=== PATIENT | male | born 1990 | race Hispanic/Latino ===

== ENCOUNTER 2018-08-25 05:33 | Inpatient (IN) | payer BC, SELFPAY ==
[2018-08-25 06:04] LABS: Absolute Lymphocytes (CBC) 1.4 K/uL (0.7-4.9); Absolute Monocytes 0.7 K/uL (0.1-1.3); Absolute Neutrophil 9.3 K/uL (1.8-8.0); Basophils % 0.2 % (0-1.3); Eosinophils % 1.2 % (0-4.4); Hematocrit 43.4 % (39.6-49.0); Lymphocytes % 12.3 % (15.3-44.8); MPV 7.8 fL (7.6-11.3); Monocytes % 6.1 % (3.3-12.3); RBC Red Blood Cell Count 4.68 M/uL (4.33-5.43)
[2018-08-25] MEDS ORDERED: NA CHLORIDE 0.9% 1,000 ML ONE (06:10)
[2018-08-25] MEDS ORDERED: ONDANSETRON 4 MG/2 ML VIAL ONE ×2 (06:10→09:51)
[2018-08-25] MEDS ORDERED: MORPHINE 4 MG/ML SYR ONE ×2 (06:10→08:30)
[2018-08-25 06:20] LABS: ALT/SGPT 43 U/L (12-78); AST/SGOT 26 U/L (15-37); Alkaline Phosphatase 58 U/L (45-117); BUN Blood Urea Nitrogen 13 mg/dL (7-18); Bicarbonate 26 mmol/L (21-32); Bilirubin Direct 0.2 mg/dL (0-0.2); Bilirubin Total 0.6 mg/dL (0.2-1.0); Glucose Level 109 mg/dL (74-106); Lipase 63 U/L (73-393); Potassium 3.6 mmol/L (3.5-5.1); Protein, Total 7.3 g/dL (6.4-8.2); Sodium Level 143 mmol/L (136-145)
--- NOTE | 2018-08-25 06:49 | EDPHYS ---
Physician Documentation [facility] Name: Walter Galvan Age: 28 yrs Sex: Male : 1990 Arrival Date: 08/25/2018 Time: 05:38 Bed 7 Private MD: Kyle Aranda H ED Physician Shaun Conte HPI: 08/25 06:14 This 28 yrs old Male presents to ER via Ambulatory with complaints of gs Abdominal Pain. 06:14 The patient presents with abdominal pain in the lower abdomen. Onset: The gs symptoms/episode began/occurred gradually, yesterday. Associated signs and symptoms: Pertinent positives: nausea and vomiting. Associated signs and symptoms: Pertinent negatives: diarrhea. The symptoms are described as crampy, sharp. Modifying factors: The symptoms are alleviated by nothing, the symptoms are aggravated by nothing. Severity of pain: At its worst the pain was moderate in the emergency department the pain is unchanged. The patient has not experienced similar symptoms in the past. Historical: - Allergies: 05:48 No Known Allergies; bb - Home Meds: 05:48 None [Active]; bb - PMHx: 05:48 None; bb - PSHx: 05:48 dental; bb - Immunization history:: Adult Immunizations unknown, Flu vaccine is not up to date. - Social history:: Smoking status: Patient uses tobacco products, smokes one-half pack cigarettes per day, Patient uses alcohol, but reports only rare drinking. Patient/guardian denies using street drugs. - Ebola Screening: : No symptoms or risks identified at this time. ROS: 06:14 All other systems are negative. gs Exam: 06:14 Head/Face: Normocephalic, atraumatic. Eyes: Pupils equal round and reactive to light, gs extra-ocular motions intact. Lids and lashes normal. Conjunctiva and sclera are non-icteric and not injected. Cornea within normal limits. Periorbital areas with no swelling, redness, or edema. ENT: Nares patent. No nasal discharge, no septal abnormalities noted. Tympanic membranes are normal and external auditory canals are clear. Oropharynx with no redness, swelling, or masses, exudates, or evidence of obstruction, uvula midline. Mucous membranes moist. Neck: Trachea midline, no thyromegaly or masses palpated, and no cervical lymphadenopathy. Supple, full range of motion without nuchal rigidity, or vertebral point tenderness. No Meningismus. Chest/axilla: Normal chest wall appearance and motion. Nontender with no deformity. No lesions are appreciated. Cardiovascular: Regular rate and rhythm with a normal S1 and S2. No gallops, murmurs, or rubs. Normal PMI, no JVD. No pulse deficits. Respiratory: Lungs have equal breath sounds bilaterally, clear to auscultation and percussion. No rales, rhonchi or wheezes noted. No increased work of breathing, no retractions or nasal flaring. Back: No spinal tenderness. No costovertebral tenderness. Full range of motion. Skin: Warm, dry with normal turgor. Normal color with no rashes, no lesions, and no evidence of cellulitis. MS/ Extremity: Pulses equal, no cyanosis. Neurovascular intact. Full, normal range of motion. Neuro: Awake and alert, GCS 15, oriented to person, place, time, and situation. Cranial nerves II-XII grossly intact. Motor strength 5/5 in all extremities. Sensory grossly intact. Cerebellar exam normal. Normal gait. 06:14 Constitutional: The patient appears alert, awake. 06:14 Abdomen/GI: Palpation: moderate abdominal tenderness, in the left lower quadrant, severe abdominal tenderness, in the right lower quadrant, rebound tenderness, is appreciated in the right lower quadrant, Indicators: Rovsing's sign is positive. Vital Signs: 05:48 BP 131 / 80; Pulse 80; Resp 18 S; Temp 97.8(O); Pulse Ox 98% on R/A; Weight 99.79 kg bb (R); Height 5 ft. 7 in. (170.18 cm) (R); Pain 8/10; 06:50 BP 130 / 88; Pulse 76; Resp 17; Temp 97.8(O); Pulse Ox 97% on R/A; Pain 6/10; ed1 06:51 Pain 6/10; ed1 07:28 BP 122 / 75; Pulse 66; Resp 18; Temp 97.7; Pulse Ox 97% on R/A; ph 08:29 BP 113 / 88; Pulse 71; Resp 18; Temp 97.8; Pulse Ox 98% on R/A; ph 05:48 Body Mass Index 34.46 (99.79 kg, 170.18 cm) bb MDM: 05:46 Patient medically screened. 06:14 Differential diagnosis: appendicitis, bowel obstruction, diverticulitis, pancreatitis. Data reviewed: vital signs, nurses notes. Response to treatment: the patient's symptoms have mildly improved after treatment. 08/25 05:48 Order name: Basic Metabolic Panel; Complete Time: 06:23 08/25 05:48 Order name: CBC with Diff; Complete Time: 06:13 08/25 05:48 Order name: Hepatic Function; Complete Time: 06:23 08/25 05:48 Order name: Lipase; Complete Time: 06:23 08/25 05:48 Order name: CT Abd/Pelvis - W/Contrast; Complete Time: 08:21 08/25 05:48 Order name: IV Saline Lock; Complete Time: 06:05 08/25 05:48 Order name: Labs collected and sent; Complete Time: 06:05 08/25 06:59 Order name: NPO EDMS Administered Medications: 06:05 Drug: NS 0.9% 1000 ml Route: IV; Rate: 1 bolus; Site: right forearm; ed1 07:27 Follow up: Response: No adverse reaction; IV Status: Completed infusion ph 06:05 Drug: morphine 4 mg Route: IVP; Site: right forearm; ed1 06:51 Follow up: Pain 6/10 Adult; Response: No adverse reaction; Pain is decreased ed1 06:05 Drug: Zofran 4 mg Route: IVP; Site: right forearm; ed1 06:52 Follow up: Response: No adverse reaction; Nausea is decreased ed1 06:56 Drug: cefOXitin 1 grams Route: IVPB; Infused Over: 30 mins; Site: right forearm; ed1 07:28 Follow up: Response: No adverse reaction; IV Status: Completed infusion ph 07:18 Drug: morphine 4 mg Route: IVP; Site: right antecubital; ph 07:28 Follow up: Response: No adverse reaction; Pain is decreased ph 08:18 Drug: morphine 4 mg Route: IVP; Site: right antecubital; ph 08:47 Follow up: Response: No adverse reaction; Pain is decreased ph Disposition: 08/25/18 06:49 Hospitalization ordered by Chinmay Rhoades for Inpatient Admission. Preliminary diagnosis are Acute appendicitis, Acute appendicitis with localized peritonitis. - Bed requested for Telemetry/MedSurg (Inpatient). - Status is Inpatient Admission. ph - Condition is Stable. - Problem is new. - Symptoms have improved. UTI on Admission? No Signatures: Dispatcher [employer] EDCaitie Patel RN RN Elder Siddiqi MD MD rn Riggs, Erika, RN RN ed1 Britni Baez RN RN Conte, MD ARABELLA Dunn gs Corrections: (The following items were deleted from the chart) 08:47 06:49 Hospitalization Ordered by Chinmay Rhoades MD for Inpatient Admission. Preliminary ph diagnosis is Acute appendicitis; Acute appendicitis with localized peritonitis. Bed requested for Telemetry/MedSurg (Inpatient). Status is Inpatient Admission. Condition is Stable. Problem is new. Symptoms have improved. UTI on Admission? No. gs
--- NOTE | 2018-08-25 06:49 | ER ---
Nurse's Notes [facility] Name: Walter Galvan Age: 28 yrs Sex: Male : 1990 Arrival Date: 08/25/2018 Time: 05:38 Bed 7 Private MD: Kyle Aranda H Diagnosis: Acute appendicitis;Acute appendicitis with localized peritonitis Presentation: 08/25 05:46 Presenting complaint: Patient states: he is having severe abdominal pain since approx bb 2200 last night thought he might be constipated but pain is getting worse, pt is having dry heaves, pain is constant with no relief. Transition of care: patient was not received from another setting of care. Onset of symptoms was August 24, 2018. Risk Assessment: Do you want to hurt yourself or someone else? Patient reports no desire to harm self or others. Initial Sepsis Screen: Does the patient meet any 2 criteria? No. Patient's initial sepsis screen is negative. Does the patient have a suspected source of infection? No. Patient's initial sepsis screen is negative. Care prior to arrival: None. 05:46 Method Of Arrival: Ambulatory bb 05:46 Acuity: SULEIMAN 3 bb Historical: - Allergies: 05:48 No Known Allergies; bb - Home Meds: 05:48 None [Active]; bb - PMHx: 05:48 None; bb - PSHx: 05:48 dental; bb - Immunization history:: Adult Immunizations unknown, Flu vaccine is not up to date. - Social history:: Smoking status: Patient uses tobacco products, smokes one-half pack cigarettes per day, Patient uses alcohol, but reports only rare drinking. Patient/guardian denies using street drugs. - Ebola Screening: : No symptoms or risks identified at this time. Screenin:49 Abuse screen: Denies threats or abuse. Denies injuries from another. Nutritional ed1 screening: No deficits noted. Tuberculosis screening: No symptoms or risk factors identified. Fall Risk None identified. Assessment: 05:49 General: Appears uncomfortable, Behavior is calm, cooperative. Pain: Complains of pain ed1 in abdomen Pain does not radiate. Pain currently is 8 out of 10 on a pain scale. Quality of pain is described as sharp, Pain began gradually, last night around 2200 Is continuous. Neuro: Level of Consciousness is awake, alert, obeys commands, Oriented to person, place, time, situation. Cardiovascular: Denies chest pain, Heart tones S1 S2 present. Respiratory: Airway is patent Respiratory effort is even, unlabored, Respiratory pattern is regular, symmetrical, Breath sounds are clear bilaterally. Denies cough, shortness of breath. GI: Abdomen is non-distended, Bowel sounds present X 4 quads. Abd is soft X 4 quads Abdomen is tender to palpation in right lower quadrant and left lower quadrant Reports nausea, vomiting, Patient currently denies diarrhea. : No signs and/or symptoms were reported regarding the genitourinary system. EENT: Oral mucosa is moist. Derm: Skin is intact, is healthy with good turgor, Skin is dry, Skin is normal, Skin temperature is warm. Musculoskeletal: Circulation, motion, and sensation intact. Range of motion: intact in all extremities. 06:50 Reassessment: Patient appears in no apparent distress at this time. Patient and/or ed1 family updated on plan of care and expected duration. Pain level reassessed. Patient is alert, oriented x 3, equal unlabored respirations, skin warm/dry/pink. Patient states feeling better. Patient states symptoms have improved. GI: Patient currently denies nausea. 07:15 Reassessment: Patient appears in no apparent distress at this time. Patient and/or ph family updated on plan of care and expected duration. Pain level reassessed. Patient is alert, oriented x 3, equal unlabored respirations, skin warm/dry/pink. Pt resting quietly, reports that pain has increased to 9/10 and denies nausea at this time, ERP notified of pain, see MAR. 07:30 Reassessment: Patient appears in no apparent distress at this time. Patient is alert, ph oriented x 3, equal unlabored respirations, skin warm/dry/pink. Pt reports that pain has decreased to 6/10, SO at bedside, awaiting consult w/ surgeon. 08:35 Reassessment: Patient appears in no apparent distress at this time. Patient and/or ph family updated on plan of care and expected duration. Pain level reassessed. Patient is alert, oriented x 3, equal unlabored respirations, skin warm/dry/pink. Pt c/o pain, ERP notified, see MAR. 08:46 Reassessment: Patient appears in no apparent distress at this time. Patient is alert, ph oriented x 3, equal unlabored respirations, skin warm/dry/pink. Surgical nurse at bedside, pt taken to OR via stretcher, accompanied by SO. Vital Signs: 05:48 BP 131 / 80; Pulse 80; Resp 18 S; Temp 97.8(O); Pulse Ox 98% on R/A; Weight 99.79 kg bb (R); Height 5 ft. 7 in. (170.18 cm) (R); Pain 8/10; 06:50 BP 130 / 88; Pulse 76; Resp 17; Temp 97.8(O); Pulse Ox 97% on R/A; Pain 6/10; ed1 06:51 Pain 6/10; ed1 07:28 BP 122 / 75; Pulse 66; Resp 18; Temp 97.7; Pulse Ox 97% on R/A; ph 08:29 BP 113 / 88; Pulse 71; Resp 18; Temp 97.8; Pulse Ox 98% on R/A; ph 05:48 Body Mass Index 34.46 (99.79 kg, 170.18 cm) bb ED Course: 05:38 Patient arrived in ED. es 05:38 Kyle Aranda DO is Private Physician. es 05:39 Shaun Conte MD is Attending Physician. gs 05:48 Triage completed. bb 05:48 Arm band placed on Patient placed in an exam room, on a stretcher, on pulse oximetry. bb Family accompanied patient. 05:49 Patient has correct armband on for positive identification. Placed in gown. Bed in low ed1 position. Call light in reach. Side rails up X 1. Adult w/ patient. Pulse ox on. NIBP on. Warm blanket given. 05:57 Jessica Galarza, RN is Primary Nurse. ed1 05:57 Initial lab(s) drawn, by me, sent to lab. Inserted saline lock: 20 gauge in right ed1 forearm, using aseptic technique. Blood collected. 06:[address] via wheelchair. kw1 06:42 CT Abd/Pelvis - W/Contrast In Process Unspecified. EDMS 06:44 CT completed. Patient tolerated procedure well. Patient moved back from CT. kw1 06:48 Chinmay Rhoades MD is Hospitalizing Provider. gs 06:59 Primary Nurse role handed off by Jessica Galarza RN ed1 07:05 Britni Baez, RN is Primary Nurse. ph 07:31 No provider procedures requiring assistance completed. Patient admitted, IV remains in ph place. Administered Medications: 06:05 Drug: NS 0.9% 1000 ml Route: IV; Rate: 1 bolus; Site: right forearm; ed1 07:27 Follow up: Response: No adverse reaction; IV Status: Completed infusion ph 06:05 Drug: morphine 4 mg Route: IVP; Site: right forearm; ed1 06:51 Follow up: Pain 6/10 Adult; Response: No adverse reaction; Pain is decreased ed1 06:05 Drug: Zofran 4 mg Route: IVP; Site: right forearm; ed1 06:52 Follow up: Response: No adverse reaction; Nausea is decreased ed1 06:56 Drug: cefOXitin 1 grams Route: IVPB; Infused Over: 30 mins; Site: right forearm; ed1 07:28 Follow up: Response: No adverse reaction; IV Status: Completed infusion ph 07:18 Drug: morphine 4 mg Route: IVP; Site: right antecubital; ph 07:28 Follow up: Response: No adverse reaction; Pain is decreased ph 08:18 Drug: morphine 4 mg Route: IVP; Site: right antecubital; ph 08:47 Follow up: Response: No adverse reaction; Pain is decreased ph Outcome: 06:49 Decision to Hospitalize by Provider. gs 08:47 Patient left the ED. ph 08:47 Admitted to OR accompanied by nurse, family with patient, via stretcher, with chart. ph 08:47 Condition: stable 08:47 Instructed on the need for admit. Signatures: Dispatcher [employer] Capri Sheikh Brenda, RN RN Jessica Galarza RN RN ed1 Britni Baez RN RN Shaun Conte MD MD Alecia Dean 1
[2018-08-25] MEDS ORDERED: ONDANSETRON 4 MG/2 ML VIAL IV PRN ×2 (06:56→10:25)
[2018-08-25] MEDS ORDERED: ACETAMINOPHEN 500 MG TAB PO PRN (06:56)
[2018-08-25] MEDS ORDERED: MORPHINE 4 MG/ML SYR IV PRN (06:56)
[2018-08-25] MEDS ORDERED: CEFOXITIN/SWI 1gm 1 GM/10 ML SYR ONE (07:04)
--- NOTE | 2018-08-25 08:06 | RAD REPORT ---
EXAM DESCRIPTION: CT - Abdomen Pelvis W Contrast - 08/25/2018 6:42 am CLINICAL HISTORY: Severe abdominal pain A preliminary report was provided at the time of the study and reviewed prior to final report. COMPARISON: None. TECHNIQUE: Biphasic, helical CT imaging of the abdomen and pelvis was performed following 100 ml non -ionic IV contrast. No oral contrast given. All CT scans are performed using dose optimization technique as appropriate and may include automated exposure control or mA/KV adjustment according to patient size. FINDINGS: No suspicious findings in the lung bases. The liver, spleen, and pancreas show no suspicious findings. Liver is borderline fatty infiltrated. N o gallbladder or biliary tree abnormality. Symmetric renal function is seen with no hydronephrosis or suspicious renal mass. No pyelonephritis o r acute parenchymal process. Contracted urinary bladder shows no suspicious finding. Prostate gland a nd seminal vesicles normal range. No adrenal abnormalities. No gastric dilatation or wall thickening. Small bowel to the mid ileum level is unremarkable. Distal ileum shows minimal fluid retention. Appendix is grossly abnormal. Tip of the appendix is dilated to 15 mm. A few punctate hyperdensities within the lumen may be small appendicoliths. There is moderate periappendiceal stranding and edema. Trace amount of free fluid is present. No abscess or free air. Cecum and appendix are in the right m id abdomen location superior to the iliac crest level. No other inflammatory stranding. No other acute peritoneal or retroperitoneal process. No mass or bu lky lymphadenopathy. A small fat only umbilical hernia is present. No suspicious bony findings. IMPRESSION: Acute appendicitis. There is significant periappendiceal edematous/ inflammatory strandi ng. No abscess, free air or other complicating finding. Cecum and appendix are positioned in the right mid abdomen, more superior than classic position. The appendix is superior to the iliac crest on an axial plane.
[2018-08-25] MEDS ORDERED: METRONIDAZOLE 500mg IVPB 500 MG/100 ML BAG IV ONE (08:45)
[2018-08-25] MEDS ORDERED: Ringers Lactate 1,000 ML IV ONE (09:02)
[2018-08-25] MEDS ORDERED: BUPIVACAINE 0.5% PF 10 ML VIAL ONE (09:02)
[2018-08-25] MEDS ORDERED: PROPOFOL 200 MG/20 ML VIAL IV ONE (09:25)
[2018-08-25] MEDS ORDERED: ROCURONIUM 50 MG/5 ML VIAL IV ONE (09:26)
[2018-08-25] MEDS ORDERED: FENTANYL CITR 100 MCG/2 ML ONE (09:28)
[2018-08-25] MEDS ORDERED: LIDOCAINE 2% MPF 5 ML VIAL ONE (09:28)
[2018-08-25] MEDS ORDERED: DEXAMETHASONE 10 MG/ML VIAL ONE (09:51)
[2018-08-25] MEDS ORDERED: KETOROLAC 30 MG/ML INJ ONE (09:51)
[2018-08-25] MEDS ORDERED: GLYCOPYRROLATE 0.2 MG/ML SYR ONE (10:01)
[2018-08-25] MEDS ORDERED: NEOSTIGMINE 1 MG/ML -5 ML SYRINGE ONE (10:04)
--- NOTE | 2018-08-25 10:15 | P.OP ---
Preoperative diagnosis: Acute Suppurative Appendicitis Postoperative diagnosis: same Primary procedure: Lap Appy Anesthesia: General Estimated blood loss: min Specimen: appy Findings: as above Complications: None Transferred to: Recovery Room Condition: Good
[2018-08-25] MEDS ORDERED: HYDROCODONE/APAP 7.5/325 MG TAB PO PRN (10:25)
[2018-08-25] MEDS ORDERED: HYDROMORPHONE HCL 1 MG/ML INJ IV PRN (10:25)
--- NOTE | 2018-08-25 11:55 | PREOPHP ---
Date of Admission: 08/25/2018 Chief Complaint: Abdominal pain. History Of Present Illness: The patient is a 28-year-old gentleman, comes in with approximately 16 h ours history of right lower quadrant abdominal pain associated with dry heaving and nausea. No vomit ing. No diarrhea or constipation. No blood in his stool. No dysuria or hematuria. No sore throat, runny nose, cough, headaches, or dizziness. No chest pain. No fever or chills. Pain is constant, and there is some anorexia. Review of Systems: Otherwise unremarkable. Past Medical History: Negative. Past Surgical History: Negative. Allergies: NONE. Social History: He does smoke and drink occasionally. He was counseled. Family History: Significant for diabetes. Physical Examination: Vital Signs: Stable. He is afebrile. He is awake, alert, and oriented x3. Head and Neck: Cranial nerves 2 through 12 are grossly within normal limits. No neck masses. No JV D. Throat clear. Neck: Supple. Chest: Clear. Heart: S1, S2. Abdomen: Soft, nondistended. Positive bowel sounds. Positive Rovsing sign. Positive right lower q uadrant tenderness with rebound. No rigidity or guarding. Extremity: Adequately perfused. Nontender. Neuro: Nonfocal. Diagnostic Data: White count is 11.6 with a left shift. Chemistry reviewed, essentially within norm al limits. CT of the abdomen and pelvis reviewed shows acute appendicitis with significant periappen diceal edematous and inflammatory stranding. Assessment: Acute appendicitis, likely suppurative. Recommendation: Admit n.p.o., IV fluid, IV antibiotic, to the OR for laparoscopic appendectomy, poss ible open. The patient understands the risks, benefits, and alternatives and agrees to procedure. /MODL Voice ID: [id number]
[2018-08-25] MEDS ORDERED: CEFOXITIN 1 GM in NA CHLORIDE 0.9% 100 ML IVPB SCH (12:00)
[2018-08-25] MEDS: METRONIDAZOLE 500mg IVPB 500 MG/100 ML BAG IV SCH ×3 (12:00→23:24)
--- NOTE | 2018-08-25 12:04 | OP ---
Date of Procedure: 08/25/2018 Surgeon: Chinmay Rhoades MD Preoperative Diagnosis: Acute suppurative appendicitis. Postoperative Diagnosis: Acute suppurative appendicitis. Procedure: Laparoscopic appendectomy. Estimated Blood Loss: Minimal. Specimen: Appendix. Findings: As above. Anesthesia: General. Complications: None. Disposition: The patient tolerated the procedure in stable condition and taken to Recovery in good g eneral condition. Procedure In Detail: The patient was brought to the OR, placed in supine position. General anesthes ia was begun. The patient was prepped and draped in the sterile fashion. Lidocaine 1% infiltrated l ocally. A 15-blade was used to make a 1 cm supraumbilical midline incision. Subcutaneous tissue div ided. The fascia was identified and divided. A #1 Vicryl stay suture was placed. Peritoneal cavity was entered with sharp and blunt dissection, 12 mm trocar was placed into the peritoneal cavity unde r direct vision. Pneumoperitoneum established, and then two 5-mm trocars placed, 1 in the suprapubic region, 1 in the left lower quadrant. Laparoscopy revealed some serous fluid in the pelvis, which w as aspirated. Appendix was identified. It was acutely inflamed with suppuration. The base of the a ppendix on the cecum clearly identified as well as the mesoappendix upon dissection and then Endo-JASON stapling device was used sequentially to divide both structures, and then the appendix retrieved thr ough the umbilicus via an EndoCatch bag. Right lower quadrant examined. No evidence of bleeding of bowel or bowel injury appreciated. Subsequently all trocars were removed under direct vision. Stay sutures were tied to each other to reapproximate the fascial defect subcu wounds were irrigated. Ble eding controlled with cautery. A 3-0 chromic was used to approximate the subcutaneous tissue. Stapl es were used to close the skin. Sterile dressing was applied. The patient was awakened and taken to Recovery in good general condition. JUN/TRISTAN Voice ID: [id number] Report ID: [id number]
[2018-08-25 12:52] VITALS: BMI 34.4
[2018-08-25] MEDS: D5 0.45 NS 1,000 ML IV SCH ×2 (13:16→21:39)
[2018-08-25] MEDS: CEFOXITIN/SWI 1gm 1 GM/10 ML SYR IV SCH ×3 (13:26→23:24)
[2018-08-25 15:43] LABS: Urine Appearance CLEAR; Urine Bilirubin NEGATIVE (NEG); Urine Blood NEGATIVE (NEG); Urine Color YELLOW; Urine Glucose 1+ (NEG); Urine Protein NEGATIVE (NEG); Urine Specific Gravity 1.015 (1.005-1.030); Urine Urobilinogen 0.2 mg/dL (0.2-1.0)
[2018-08-25 15:45] LABS: Urine Microscopic Reflex ORDER UMIC
[2018-08-25 17:44] LABS: Urine Bacteria <20 /HPF (NONE SEEN); Urine Culture Reflex Order REFLEXED; Urine RBC <5 /HPF (NONE SEEN)
[2018-08-26] MEDS: METRONIDAZOLE 500mg IVPB 500 MG/100 ML BAG IV SCH ×3 (05:48→17:28)
[2018-08-26] MEDS: D5 0.45 NS 1,000 ML IV SCH ×4 (05:49→23:00)
[2018-08-26] MEDS: CEFOXITIN/SWI 1gm 1 GM/10 ML SYR IV SCH ×2 (05:49→12:00)
[2018-08-26 06:56] LABS: Absolute Lymphocytes (CBC) 1.4 K/uL (0.7-4.9); Absolute Monocytes 0.5 K/uL (0.1-1.3); Absolute Neutrophil 14.5 K/uL (1.8-8.0); Basophils % 0.1 % (0-1.3); Hematocrit 40.2 % (39.6-49.0); Lymphocytes % 8.5 % (15.3-44.8); MPV 8.7 fL (7.6-11.3); Monocytes % 2.9 % (3.3-12.3); RBC Red Blood Cell Count 4.35 M/uL (4.33-5.43)
[2018-08-26 08:54] LABS: Blood Morphology Comment NOT SEEN (NOT SEEN); Platelet Estimate ADEQ; Urine White Blood Cell Casts OK
[2018-08-26] MEDS ORDERED: CEFOXITIN/SWI 1gm 1 GM/10 ML SYR IVP ONE (13:00)
--- NOTE | 2018-08-26 13:23 | PN ---
Date of Progress Note: 08/26/2018 Subjective: The patient is awake, alert. No complaint. Objective: Vital Signs: Stable, afebrile. Abdomen: Benign. However, his white count is 16,000. Assessment: Status post laparoscopic appendectomy for acute suppurative appendicitis. Plan: Continue IV antibiotics. Encourage ambulation and incentive spirometry. Likely discharge tracie e within 24 to 48 hours. /MODL Voice ID: [id number] Report ID: [id number]
[2018-08-26] MEDS: CEFOXITIN/SWI 1gm 1 GM/10 ML SYR IVP SCH ×2 (13:26→17:29)
[2018-08-27] MEDS: CEFOXITIN/SWI 1gm 1 GM/10 ML SYR IVP SCH ×2 (00:30→05:13)
[2018-08-27] MEDS: METRONIDAZOLE 500mg IVPB 500 MG/100 ML BAG IV SCH ×2 (00:31→05:13)
[2018-08-27 02:57] VITALS: O2SAT 97
[2018-08-27] MEDS: D5 0.45 NS 1,000 ML IV SCH (05:13)
[2018-08-27 08:28] LABS: Absolute Lymphocytes (CBC) 2.6 K/uL (0.7-4.9); Absolute Monocytes 0.5 K/uL (0.1-1.3); Absolute Neutrophil 5.3 K/uL (1.8-8.0); Basophils % 0.3 % (0-1.3); Eosinophils % 1.2 % (0-4.4); Hematocrit 38.2 % (39.6-49.0); Lymphocytes % 30.5 % (15.3-44.8); MPV 8.3 fL (7.6-11.3); Monocytes % 5.5 % (3.3-12.3); RBC Red Blood Cell Count 4.08 M/uL (4.33-5.43)
[2018-08-27 08:56] VITALS: BP 114/64; TEMP 98.1
--- NOTE | 2018-08-28 05:22 | DS ---
Date of Discharge: 08/27/2018 Admitting Diagnosis: Acute appendicitis. Discharge Diagnosis: Acute appendicitis. Procedure Performed: Laparoscopic appendectomy. Hospital Course: The patient is a 28-year-old gentleman who underwent the aforementioned procedure. Postoperatively, he had leukocytosis. He was kept an extra day for IV antibiotics. He started ambu lating. Pain was controlled with p.o. pain medication. Afebrile. The patient will be discharged to home. Disposition: Home. Condition: Stable. Discharge Instructions: Resume home medications and diet. Activity as tolerated. No heavy lifting. Remove outer dressing in 2 days. Shower. Keep wound clean and dry. [place] Call for appointment. Tylenol No. 3 one tablet p.o. q.4 hours p.r.n. pain, Cipro 500 mg p.o. q .12 hours, Flagyl 500 mg p.o. q.6 hours. JUN/TRISTAN Voice ID: [id number] Report ID: [id number]
== END 2018-08-27 11:13 | disposition home or self-care (01) | DRG 343 ==
LOC: ER 05:33 → ERHOLD 06:52 → 4TH 12:02
PROVIDERS: ADMIT Surgery; ATTEND Surgery
PROC: 0DTJ4ZZ Resection of Appendix, Percutaneous Endoscopic Approach (ICD-10-PCS; principal; 2018-08-25 09:00)
DX: K35.80 Unspecified acute appendicitis (principal); D72.829 Elevated white blood cell count, unspecified; F17.210 Nicotine dependence, cigarettes, uncomplicated
CPT/HCPCS: 36415; 74177; 80048; 80076; 81003; 81015; 83690; 85025; 87086; 87088; 88304; 99285; J1100; J2405; J2704; J2710; J3010; J7030; Q9967